=== PATIENT | female | born 1950 | race Caucasian/White ===

== ENCOUNTER 2016-12-17 09:14 | Inpatient (IN) | payer BC, OTHER ==
[2016-11-27 15:31] VITALS: BMI 37.0
--- NOTE | 2016-11-27 16:07 | PAT Medication Instructions ---
Service Date Nov 27, 2016. Current Home Medication List Cholecalciferol (Vitamin D3), 1 TAB PO QAM Cinnamon (Cinnamon), 500 MG PO QAM Clopidogrel (Plavix), 75 MG PO QAM Cyanocobalamin (Vitamin B-12 1000 Mcg), 1,000 MCG PO QAM Desvenlafaxine Succinate (Pristiq), 50 MG PO QAM Ezetimibe (Zetia), 10 MG PO QAM Fish Oil ([place]aster-3), 1,200 MG PO QAM Ibuprofen (Advil), 400 MG PO PRN Losartan Potassium (Cozaar), 50 MG PO QAM Multiple Vitamins W/ Minerals (Hair Skin and Nails Formu), 1 TAB PO QAM Nebivolol Hcl (Bystolic), 5 MG PO QAM Potassium Gluconate (Potassium Gluconate), 595 MG PO QAM Rosuvastatin Calcium (Crestor), 5 MG PO QAM Turmeric (Curcuma Longa) (Turmeric), 500 MG PO QAM [Cla], 1,250 MG PO QAM [Magnesium], 1 TAB PO QAM Medication Instructions For Your Scheduled Surgery - Check with senior air director for instructions: Clopidogrel (Plavix), 75 MG PO QAM - Hold the following medications 2 weeks prior to surgery: Cinnamon (Cinnamon), 500 MG PO QAM Fish Oil ([place]aster-3), 1,200 MG PO QAM Turmeric (Curcuma Longa) (Turmeric), 500 MG PO QAM - Hold the following medications 7-10 days prior to surgery per surgeon's instructions: Ibuprofen (Advil), 400 MG PO PRN - Hold the following medications the morning of surgery: Cholecalciferol (Vitamin D3), 1 TAB PO QAM Cyanocobalamin (Vitamin B-12 1000 Mcg), 1,000 MCG PO QAM Losartan Potassium (Cozaar), 50 MG PO QAM Multiple Vitamins W/ Minerals (Hair Skin and Nails Formu), 1 TAB PO QAM [Cla Protein], 1,250 MG PO QAM [Magnesium], 1 TAB PO QAM Potassium Gluconate (Potassium Gluconate), 595 MG PO QAM - Take the following medications the morning of surgery with a sip of water OTHERWISE NOTHING TO EAT OR DRINK AFTER MIDNIGHT: Ezetimibe (Zetia), 10 MG PO QAM Desvenlafaxine Succinate (Pristiq), 50 MG PO QAM Nebivolol Hcl (Bystolic), 5 MG PO QAM Rosuvastatin Calcium (Crestor), 5 MG PO QAM If you have any questions please call us at [phone] or [phone] or [phone]
[2016-11-27 16:39] LABS: BASO % 0.2 %; BASO ABS # 0.02 K/uL (0-0.2); COMPLETE YES; EOS % 1.4 %; HEMATOCRIT 40.2 % (37-47); IG% 0.2 %; LYMPH % 25.9 %; LYMPH ABS # 2.58 K/uL (1.2-3.4); MEAN CELL VOLUME 95.9 fL (80-100); MEAN CORPUSCULAR HEMOGLOBIN 32.2 pg (25-34); MEAN CORPUSCULAR HGB CONC 33.6 g/dl (32-36); MEAN PLATELET VOLUME 9.4 fL (7.4-10.4); MONO % 5.6 %; NEUT % 66.7 %; PLATELET COUNT 278 K/uL (130-400); RED BLOOD COUNT 4.19 M/uL (4.2-5.4); WHITE BLOOD COUNT 9.95 K/uL (4.8-10.8)
[2016-11-27 17:06] LABS: INR 0.9 (0.9-1.1); PARTIAL THROMBOPLASTIN RATIO 0.9
--- NOTE | 2016-11-27 17:09 | DIAGNOSTIC IMAGING REPORT ---
CHEST 2 VIEWS ROUTINE CLINICAL HISTORY: pat preoperative evaluation COMPARISON STUDY: No previous studies for comparison. FINDINGS: The bones soft tissues and hemidiaphragms are normal. The cardiomediastinal silhouette is normal. The lungs are clear. The pulmonary vasculature is normal. IMPRESSION: Negative chest. Electronically signed by: Carlos Voss M.D. 11/27/2016 5:08 PM Dictated Date/Time: 11/27/2016 5:08 PM
[2016-11-27 17:14] LABS: URINE APPEARANCE CLEAR (CLEAR); URINE BILIRUBIN NEG (NEG); URINE COLOR YELLOW; URINE NITRITE NEG (NEG); URINE PH 7.5 (4.5-7.5); URINE SPECIFIC GRAVITY 1.006 (1.000-1.030); UROBILINOGEN NEG (NEG); ZZUR CULT IF INDIC CLEAN CATCH NO
[2016-11-27 17:17] LABS: BUN/CREATININE RATIO 17.5 (10-20); CALCIUM 9.6 mg/dl (8.5-10.1); CREATININE 0.75 mg/dl (0.60-1.20); POTASSIUM 4.3 mmol/L (3.5-5.1)
[2016-11-27 17:29] LABS: MANUAL MICROSCOPIC REQUIRED? NO; REVIEW REQ? NO
--- NOTE | 2016-12-14 10:53 | HISTORY & PHYSICAL EXAMINATION ---
DATE OF ADMISSION: 12/17/2016 CHIEF COMPLAINT: Right hip pain. HISTORY OF PRESENT ILLNESS: Vicky is a 66-year-old female with a multiple-year history of pain in both of her hips. The patient states her right is worse than left. She rates her pain a 10/10. She has pain with her daily activities. She has limited standing and walking tolerance. Pain is worse with weightbearing. The patient has had injections, anti-inflammatories. She is on Plavix so her NSAID use is limited. She has failed conservative treatment and is scheduled for right hip replacement. PAST MEDICAL HISTORY: Hypertension, hypercholesterolemia, anxiety, history of TIA and prothrombin variant. She denies heart disease, diabetes or DVT. PAST SURGICAL HISTORY: and ORIF left lower extremity. SOCIAL HISTORY: The patient drinks 2 drinks per week. She denies tobacco use. She lives in a single story home. 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 FAMILY HISTORY: Positive for CVA in her father. MEDICATIONS: Crestor 5 mg, 15 mg, Bystolic 5 mg, Plavix 75 mg, Zetia 10 mg, losartan 50 mg, fish oil 1200 mg, turmeric 500 mg, vitamin B12, vitamin D3, magnesium, potassium gluconate, CLA 1250 mg and cinnamon 500 mg. ALLERGIES: COMPAZINE. REVIEW OF SYSTEMS: See HPI. Ten other systems reviewed, all negative. PHYSICAL EXAMINATION: VITAL SIGNS: Height 4 feet 11, weight 132 pounds, BMI is 27. GENERAL: This is a well-developed, well-nourished female who is alert and oriented x3. Mood and affect are appropriate. HEAD, EYES, EARS, NOSE, AND THROAT: Normocephalic, atraumatic. Mucous membranes are moist and intact. NECK: Supple without lymphadenopathy. HEART: Regular rate and rhythm without murmurs, rubs or gallops. LUNGS: Clear to auscultation without wheezes or rhonchi. ABDOMEN: Soft and nontender. Bowel sounds are equal and active. EXTREMITIES: No ecchymosis, redness or warmth. Thigh and calf are soft and nontender. Log roll of the hip reproduces pain in the groin. She is neurovascularly intact with +5/5 strength. X-RAY EXAMINATION: AP and lateral views show severe joint space narrowing with partial femoral head collapse. She has large osteophytes and bony sclerosis. IMPRESSION: Degenerative joint disease, severe, right hip. PLAN: The patient will be admitted for a right total hip arthroplasty. We will plan on Coumadin or Lovenox for DVT prophylaxis due to her prothrombin disorder. Her PCP is Dr. Bonner. She is likely going to do home physical therapy. JUAN LUIS
[2016-12-16 23:10] VITALS: BP 94/54; PULSE 67; TEMP 36.7; O2SAT 97
[2016-12-17] VITALS (8 sets, daily range): BP systolic 85–128; BP diastolic 47–63; PULSE 69–87; TEMP 35.9–37; O2SAT 97–100; Ht 151.1 cm; Wt 59.5 kg
[~2016-12-17] VITALS: Ht 151.1 cm; Wt 59.5 kg
[~2016-12-17 09:14] MED LIST: ACETAMINOPHEN 500 MG TAB PO SCH; BUPIVACAINE 0.5 % 5 MG/1 ML PF 10ML VIAL ONE; CEFAZOLIN 2000 MG/60 ML D5W 60 ML IV SCH; CHOL20007 PO; CINN1CAP2 PO; CLA PO; CLOP1TAB15 PO; CYAN10004 PO; CeleBREX 200 MG CAP PO SCH; DESV50TA2 PO; DEXAMETHASONE 4 MG TAB PO SCH; EZET10TA63 PO; FAMOTIDINE 20 MG TAB PO SCH; GABAPENTIN 300 MG CAP PO SCH; IBUP-1050 PO; LACTATED RINGER'S 1000ML IV SCH; LOSA50TA6 PO; MAGNESIUM PO; METOCLOPRAMIDE HCL 10 MG TAB PO SCH; MULT-1018 PO; NEBI10TA2 PO; OMEG10007 PO; OXYCODONE HCL 10 MG TABCR (OXYCONTIN) PO SCH; POLYMYXIN B SULFATE 100,000 UNITS in NSS 100ML IR SCH; POTA1TAB PO; ROPIVACAINE 5MG/ML 30 ML 150 MG, BUPIVACAINE/EPINEPHR 0.5% MPF 30 ML, KETOROLAC TROMETH... INFIL SCH; ROSU5TAB PO; TURM1CAP4 PO; VANCOMYCIN INJ 400 MG in NSS 100ML IR SCH
[2016-12-17] MEDS ORDERED: LIDOCAINE HCL 2% 2 ML VIAL (20MG/ML) ONE (09:37)
[2016-12-17] MEDS ORDERED: MIDAZOLAM HCL 1 MG/ML 2ML VIAL ONE ×2 (09:37→12:10)
[2016-12-17] MEDS ORDERED: FENTANYL CITRATE INJ 50 MCG/1 ML 2 ML VIAL ONE (09:37)
[2016-12-17] MEDS ORDERED: PROPOFOL IV EMULSION 10 MG/ML 20 ML VIAL IV ONE ×2 (09:37→12:36)
[2016-12-17] MEDS ORDERED: ASPI-390 PO (09:55)
--- NOTE | 2016-12-17 10:37 | History & Physical Bridge Note ---
H&P Re-Evaluation Bridge Note: I have examined the patient, reviewed the History & Physical and in the interval since the performance of the History & Physical I have noted the following changes of clinical significance: No changes noted
[2016-12-17] MEDS ORDERED: BACITRACIN 50000 UNIT VIAL ONE (11:01)
[2016-12-17] MEDS ORDERED: POVIDONE-IODINE OP SOLN 30 ML BTL ONE (11:01)
[2016-12-17] MEDS ORDERED: ORTHO JOINT ANESTHETIC ONE (11:01)
[2016-12-17] MEDS ORDERED: METOPROLOL TARTRATE 1 MG/ML VIAL ONE (11:11)
[2016-12-17] MEDS: TRANEXAMIC ACID INJ 1,000 MG in SODIUM CHLORIDE 0.9% 100ML 100 ML IV SCH ×2 (11:18→16:03)
[2016-12-17] MEDS ORDERED: LACTATED RINGER'S 1000ML 1,000 ML IV PRN (11:19)
[2016-12-17] MEDS ORDERED: FENTANYL CITRATE INJ 50 MCG/1 ML 2 ML VIAL IV PRN (11:30)
[2016-12-17] MEDS ORDERED: ONDANSETRON INJ 2 MG/ML 2 ML VIAL IV PRN ×2 (11:30→13:15)
[2016-12-17] MEDS ORDERED: PHENYLEPHRINE HCL INJ 10 MG/ML VIAL ONE (12:07)
[2016-12-17] MEDS ORDERED: EpHEDrine SULFATE INJ 50 MG/ML AMP ONE (12:07)
[2016-12-17] MEDS ORDERED: METOCLOPRAMIDE HCL INJ 5 MG/ML 2 ML VIAL IV PRN (13:15)
[2016-12-17] MEDS ORDERED: TRAMADOL HCL 50 MG TAB PO PRN (13:15)
[2016-12-17] MEDS ORDERED: ZOLPIDEM TARTRATE 5 MG TAB PO PRN (13:15)
[2016-12-17] MEDS ORDERED: OXYCODONE HCL IR 5 MG TAB (IMMEDIATE RELEASE) PO PRN (13:15)
[2016-12-17] MEDS ORDERED: BISACODYL 10 MG SUPP PR PRN (13:15)
[2016-12-17] MEDS ORDERED: MAGNESIUM HYDROXIDE SUSP 30 ML UDC PO PRN (13:15)
[2016-12-17] MEDS ORDERED: SOD PHOSPHATE/SOD BIPHOSPHATE ENEMA 132 ML BTL PR PRN (13:15)
[2016-12-17] MEDS ORDERED: ALUMINUM/MAGNESIUM/SIMETH (MAALOX MAX) 30 ML UDC PO PRN (13:15)
[2016-12-17] MEDS ORDERED: MoRPHine SULFATE 2 MG/ML CARP IV PRN (13:15)
[2016-12-17] MEDS ORDERED: DiphenhydrAMINE HCL 50 MG/ML VIAL IV PRN (13:15)
--- NOTE | 2016-12-17 13:15 | [facility] Post Operative Brief Note ---
Immediate Operative Summary Operative Date Dec 17, 2016. Pre-Operative Diagnosis Severe degenerative joint disease, right hip Post-Operative Diagnosis same as preoperative diagnosis Procedure(s) Performed Right Total Hip Arthroplasty, Direct Anterior Approach Surgeon Dr. Barrera Naphthalene Operator Surgeon(s) Carrie Mejia PA-C Estimated Blood Loss 75ML Findings severe dz Specimens A. Right femoral head Complication(s) None Disposition Recovery Room / PACU
--- NOTE | 2016-12-17 13:35 | DIAGNOSTIC IMAGING REPORT ---
RIGHT HIP UNILATERAL 1 VIEW CLINICAL HISTORY: RT TOTAL HIP ARTHROPLASTY Right COMPARISON STUDY: None. FINDINGS: Single fluoroscopic spot image. Fluoroscopy time was 9 seconds. There is a partially visualized right total hip arthroplasty. The acetabular cup is not entirely included on this study. The hardware appears intact. No fracture or dislocation. IMPRESSION: Fluoroscopy provided for right total hip arthroplasty. Electronically signed by: Hermes Bush M.D. 12/17/2016 1:34 PM Dictated Date/Time: 12/17/2016 1:21 PM
--- NOTE | 2016-12-17 14:21 | DIAGNOSTIC IMAGING REPORT ---
AP PELVIS, CROSSTABLE LATERAL RIGHT HIP History: Right total hip arthroplasty. Degenerative arthritis. Postop. FINDINGS: The patient is status post a right total hip arthroplasty. The hardware is intact. No fracture or dislocation. Surgical drains are in place. There is severe osteoarthritis with partial collapse of the left femoral head. There may be associated avascular necrosis of the left femoral head. IMPRESSION: Right total hip arthroplasty. No evidence for hardware complication. There is severe osteoarthritis with partial collapse of the femoral head. There may be associated left femoral head avascular necrosis. Electronically signed by: Hermes Bush M.D. 12/17/2016 2:20 PM Dictated Date/Time: 12/17/2016 2:19 PM
--- NOTE | 2016-12-17 14:27 | Discharge Instructions ---
Discharge Instructions Date of Service Dec 17, 2016. Admission Reason for Admission: Right Hip Degenerative Arthritis Discharge Discharge Diagnosis / Problem: sp right total hip Discharge Goals Goal(s): Decrease discomfort, Improve function, Increase independence Activity Recommendations Activity Limitations: per Instructions/Follow-up section . Instructions / Follow-Up Instructions / Follow-Up ACTIVITY RECOMMENDATIONS: SELF CARE INSTRUCTIONS AFTER TOTAL HIP REPLACEMENT : Direct Anterior Approach Until the incision and soft tissues around your hip have healed, there is a possibility that the hip prosthesis could dislocate. A. Hip flexion ( Up & Down out of chair or steps ) may be difficult. This is normal. B. Numbness in front of the thigh is also normal for a few weeks. C. Use hand rails when walking on stairs. D. Wear low heeled shoes with non-slip soles. E. Be sure that your floors are free of things that could trip you - throw rugs , electrical cords, small objects. Avoid wet and waxed floors, especially with crutches and canes. F. Try to walk several times a day with rest periods between. G. Continue with all the exercises taught to you in the hospital. Again, make walking a part of your daily routine. SPECIAL CARE INSTRUCTIONS: VERY IMPORTANT TO READ AND REVIEW A. You may still be at risk for phlebitis and blood clots. 1. Wear surgical stockings (BLANCA hose) for 2 weeks after surgery to improve circulation and reduce swelling. 3. High risk patients may be prescribed a stronger blood thinner if necessary. LOVENOX 30MG DAILY X 2 WEEKS. THEN RESUME PLAVIX AND ASA 81MG DAILY. 4. If you are on Coumadin normally, your family doctor/design printing machine setter should monitor your blood work. Expect a phone call the day of or the day after bloodwork is drawn to adjust your dosage. B. You must take antibiotics before having dental work, bladder, bowel and other surgery. Your doctor will provide you with a permanent card to carry describing precautions. C. Call [facility] if you have a fever, redness or swelling around the incision, cloudy drainage from incision, or sudden increase in pain in your hip, not relieved by your regular pain medication. D. Please call the office at if you have any concerns or questions about your operation or recovery. * YOU MAY SHOWER, NO TUB BATHS UNTIL CLEARED BY YOUR DOCTOR. - Keep an extra close eye on the top portion of your incision. Be sure to keep clean & dry. * WEAR BLANCA HOSE 20 HOURS PER DAY FOR 2 WEEKS. * YOU MAY PROGRESS FROM A WALKER, TO A CANE, TO INDEPENDENT AT YOUR OWN PACE. * MOST PATIENTS WILL HAVE HOME NURSING FOR THERAPY. IF YOU DECIDE TO DO OUTPATIENT PHYSICAL THERAPY, PLEASE SCHEDULE THIS 3 TIMES PER WEEK. * DERMABOND Prineo- This is a mesh tape dressing that is covered with glue. It should remain in place until the incision is properly healed, usually 10-14 days. This dressing is designed to naturally slough off. You may trim the excess mesh tape as it peels off. Incision may be briefly wet in a shower. Dry immediately by blotting with a clean, dry towel. Do not bath or swim until instructed by your doctor. Do not scratch, rub, or pick at the dressing. Do not apply any topical ointments or lotions until dressing is completely removed and/or instructed by your doctor. There may be a small piece of suture material at one end of your incision. Do not pull or trim this. If it is bothersome or catching on clothing, you may cover it with a band-aid. FOLLOW UP VISIT: If appointment is not already scheduled: Please call [facility] to make a follow-up appointment for 2 weeks after your surgery at . Current Hospital Diet Patient's current hospital diet: Regular Diet Discharge Diet Recommended Diet: Regular Diet Procedures Procedures Performed: Right Total Hip Arthroplasty, Direct Anterior Approach Pending Studies Studies pending at discharge: no Medical Emergencies . Who to Call and When: Medical Emergencies: If at any time you feel your situation is an emergency, please call 911 immediately. . Non-Emergent Contact Non-Emergency issues call your: Surgeon . "Provider Documentation" section prepared by Carrie Mejia. VTE Core Measure Inpt VTE Proph given/why not?: Enoxaparin (Lovenox)Candido AGUILERA, SCD's
--- NOTE | 2016-12-17 14:50 | Anesthesiology Progress Note ---
Anesthesia Post Op Note Date & Time Dec 17, 2016 at 14:50 Vital Signs Pain Intensity: 0 Vital Signs Past 12 Hours Date Time Temp Pulse Resp B/P Pulse Ox O2 Delivery O2 Flow Rate FiO2 12/17/16 14:45 79 16 100/61 96 Nasal Cannula 2 12/17/16 14:30 36.7 80 19 100/54 99 Nasal Cannula 2 12/17/16 14:20 79 19 100/49 100 Nasal Cannula 2 12/17/16 14:10 81 16 110/63 100 Nasal Cannula 2 12/17/16 14:00 78 18 105/50 100 Nasal Cannula 2 12/17/16 13:50 81 19 95/63 100 Mask 10 12/17/16 13:40 84 24 103/60 100 Mask 10 12/17/16 13:34 36.2 85 22 113/71 100 Mask 10 12/17/16 09:58 36.8 69 20 128/63 99 Room Air Notes Mental Status: alert / awake / arousable, participated in evaluation Pt Amnestic to Procedure: No Nausea / Vomiting: adequately controlled Pain: adequately controlled Airway Patency, RR, SpO2: stable & adequate BP & HR: stable & adequate Hydration State: stable & adequate Neuraxial Anesthesia: was administered, sensory block is resolving Anesthetic Complications: no major complications apparent Pt doing well. Recall as expected.
--- NOTE | 2016-12-17 14:56 | OPERATIVE REPORT ---
DATE OF OPERATION: 12/17/2016 PREOPERATIVE DIAGNOSIS: Severe degenerative arthritis, right hip. POSTOPERATIVE DIAGNOSIS: Same. PROCEDURE: Right total hip replacement. SURGEON: Mike Barrera MD [employer]UP LINE CORE FEEDER: KIKI Starkey ANESTHESIA: Spinal. BLOOD LOSS: 75 mL. REPLACEMENT FLUIDS: 1100 mL crystalloid. DRAINS: Hemovac x2. CULTURES: None. COMPLICATIONS: None. COMPONENTS USED: [employer] hip system: Acetabulum size 48, femur size 4 high offset, femoral head 0, and neck length 32 mm. NOTE: Carrie Mejia was present and assisted throughout due to the complicated nature of this case. She helped with preparation and set up, first assisted throughout and personally closed the fascial, subcutaneous and skin layers and applied the postoperative dressing. DESCRIPTION OF PROCEDURE: Following satisfactory spinal, the patient was supine. The right leg was placed in the traction device and the left leg in the well leg wylie. The right leg was prepared with ChloraPrep and draped sterilely. Following a surgical time-out, an anterior approach in the interval between the sartorius and tensor muscles was completed, the circumflex femoral vessels were identified and ligated and anterior capsulotomy was performed exposing a severely arthritic femoral neck and head with significant bone loss. The femoral neck and head were trimmed and removed. The acetabular self-retraining retractor was placed. Acetabular preparation was completed including removing large osteophytic bone. Reaming was completed under fluoroscopic guidance and a 48 shell was impacted into an anatomic position and secured with a dome screw. Local anesthetic was placed and after irrigation, the polyethylene liner was placed. The femur was placed in a position of external rotation, extension and adduction. Femoral canal was prepared up to the size 4. Trial reduction with a 0 neck length head showed good soft tissue tension and leg lengths restored using fluoroscopic anatomic landmarks. The fluoroscopy also showed good fit and fill of the proximal canal with the femoral component. The hip was dislocated. The trial component was removed. The final implant was placed. After irrigation, the hip reduced. Fluoroscopy confirmed similar position. A Betadine soak was performed for 5 minutes. The Betadine was then irrigated. The capsule was closed with 1 Vicryl interrupted. A drain was then placed. The fascia was closed with a running suture of #1 Vicryl, the subcutaneous tissues with 2-0 Vicryl and the skin with a running subcuticular stitch of 3-0 V-Loc. Dermabond and a dry dressing were applied. The patient was returned to her bed in stable condition. I attest to the content of the Intraoperative Record and any orders documented therein. Any exceptio ns are noted below.
[2016-12-17] MEDS: D5W AND 1/2NSS + 20MEQ KCL 1,000 ML IV SCH (16:33)
[2016-12-17] MEDS: KETOROLAC TROMETHAMINE 15 MG/ML VIAL IV. SCH ×2 (17:30→23:54)
[2016-12-17] MEDS: CEFAZOLIN IV 1,000 MG in DEXTROSE 5% 50ML 50 ML IV SCH (19:32)
[2016-12-17] MEDS: SENNA 8.6 MG TAB PO SCH (21:00)
[2016-12-17] MEDS: ACETAMINOPHEN 500 MG TAB PO SCH (21:00)
[2016-12-18] MEDS: D5W AND 1/2NSS + 20MEQ KCL 1,000 ML IV SCH ×2 (02:16→12:00)
[2016-12-18 03:10] VITALS: BP 91/63; PULSE 62; TEMP 36.6; O2SAT 97
[2016-12-18] MEDS: CEFAZOLIN IV 1,000 MG in DEXTROSE 5% 50ML 50 ML IV SCH (04:03)
[2016-12-18] MEDS: KETOROLAC TROMETHAMINE 15 MG/ML VIAL IV. SCH ×3 (05:39→17:34)
[2016-12-18] MEDS: ACETAMINOPHEN 500 MG TAB PO SCH ×3 (05:40→20:39)
[2016-12-18 06:30] LABS: BASO % 0.1 %; BASO ABS # 0.01 K/uL (0-0.2); COMPLETE YES; IG% 0.4 %; LYMPH ABS # 1.06 K/uL (1.2-3.4); MEAN CELL VOLUME 91.2 fL (80-100); MEAN CORPUSCULAR HEMOGLOBIN 31.1 pg (25-34); MEAN CORPUSCULAR HGB CONC 34.1 g/dl (32-36); MEAN PLATELET VOLUME 8.8 fL (7.4-10.4); MONO % 5.6 %; NEUT % 86.9 %; PLATELET COUNT 276 K/uL (130-400); RED BLOOD COUNT 3.51 M/uL (4.2-5.4); WHITE BLOOD COUNT 15.13 K/uL (4.8-10.8)
[2016-12-18 07:07] LABS: BUN/CREATININE RATIO 10.6 (10-20); CALCIUM 8.7 mg/dl (8.5-10.1); CREATININE 0.77 mg/dl (0.60-1.20); POTASSIUM 4.1 mmol/L (3.5-5.1)
[2016-12-18 07:23] VITALS: BP 111/59; PULSE 70; TEMP 36.8; O2SAT 100
--- NOTE | 2016-12-18 07:52 | Anesthesiology Progress Note ---
Anesthesia Post Op Note Date & Time Dec 18, 2016 at 07:52 Vital Signs Pain Intensity: 10.0 Vital Signs Past 12 Hours Date Time Temp Pulse Resp B/P Pulse Ox O2 Delivery O2 Flow Rate FiO2 12/18/16 07:23 36.8 70 19 111/59 100 Room Air 12/18/16 03:10 36.6 62 16 91/63 97 Room Air 12/17/16 23:50 Room Air Notes Mental Status: alert / awake / arousable, participated in evaluation Pt Amnestic to Procedure: Yes Nausea / Vomiting: adequately controlled Pain: adequately controlled Airway Patency, RR, SpO2: stable & adequate BP & HR: stable & adequate Hydration State: stable & adequate Neuraxial Anesthesia: sensory block resolved Anesthetic Complications: no major complications apparent
[2016-12-18 09:00] VITALS: BP 104/73; PULSE 73
[2016-12-18] MEDS: CHOLECALCIFEROL 1000 INTER.UNIT TAB PO SCH (09:00)
[2016-12-18] MEDS: LOSARTAN POTASSIUM 50 MG TAB PO SCH (09:00)
[2016-12-18] MEDS ORDERED: NON-FORMULARY MEDICATION (Potassium Gluconate 595 MG) PO SCH (09:00)
[2016-12-18] MEDS: NEBIVOLOL HCL 5 MG TAB PO SCH (09:00)
[2016-12-18] MEDS: PANTOprazole SOD 40 MG TAB PO SCH (09:02)
[2016-12-18] MEDS: CYANOCOBALAMIN 500 MCG TAB (VIT B-12) PO SCH (09:03)
[2016-12-18] MEDS: EZETIMIBE 10MG TAB PO SCH (09:03)
[2016-12-18] MEDS: DESVENLAFAXINE SUCCINATE 50 MG TABCR PO SCH (09:03)
[2016-12-18] MEDS: ROSUVASTATIN CALCIUM 5 MG TAB PO SCH (09:03)
[2016-12-18] MEDS: MULTIVITAMIN TAB PO SCH (09:03)
[2016-12-18] MEDS: ENOXAPARIN 30 MG/0.3 ML SYR SQ SCH (11:30)
[2016-12-18 11:32] VITALS: BP 115/69; PULSE 67; TEMP 37; O2SAT 100
--- NOTE | 2016-12-18 12:13 | Orthopedic Progress Note ---
Orthopedic Progress Note Date of Service Dec 18, 2016. Subjective Post OP Day: 1 Reports: feeling well, Denies: SOB, calf pain, chest pain, light headedness, nausea / vomiting Additional Notes: Pt states that when she began to get OOB to ambulate, she swung her operative leg over the bed and had pain in the posterolateral hip and along the incision, that radiated somewhat down the thigh. Denies shooting pains into the knee or foot. Denies numbness in the RLE. States she had a bout of Sciatica a few months back that was treated by her Chiropractor. No other complaints. States she's able to ambulate without difficulty but when she goes to sit down or stand up, she has the pain. Objective calves soft nontender, N/V intact, hip located, dressing C/D/I, A&O x3, toes mobile Pt stands up from her chair. Points to her posterolateral hip/buttock where she is feeling the pain mostly and also along her incision. No bleeding noted on her incision. Thigh is soft, NT. Good active DF/PF of the right foot. No decrease in sensation. Date Time Temp Pulse Resp B/P Pulse Ox O2 Delivery O2 Flow Rate FiO2 12/18/16 11:32 37.0 67 16 115/69 100 Room Air 12/18/16 09:00 73 104/73 12/18/16 07:30 Room Air 12/18/16 07:23 36.8 70 19 111/59 100 Room Air 12/18/16 03:10 36.6 62 16 91/63 97 Room Air 12/17/16 23:50 Room Air 12/17/16 19:44 37.0 72 16 95/58 97 Room Air 12/17/16 18:14 35.9 78 18 96/61 100 Nasal Cannula 2.0 12/17/16 17:28 95/55 12/17/16 17:14 36.4 83 16 85/47 100 Nasal Cannula 2.0 12/17/16 16:13 36.7 87 18 102/62 100 Nasal Cannula 2.0 12/17/16 15:42 36.6 75 16 96/59 100 Nasal Cannula 2.0 12/17/16 15:15 Nasal Cannula 2.0 12/17/16 15:15 Nasal Cannula 2.0 12/17/16 15:15 36.7 75 16 96/58 100 Nasal Cannula 2.0 12/17/16 15:00 78 15 90/55 100 Nasal Cannula 2 12/17/16 14:45 79 16 100/61 96 Nasal Cannula 2 12/17/16 14:30 36.7 80 19 100/54 99 Nasal Cannula 2 12/17/16 14:20 79 19 100/49 100 Nasal Cannula 2 12/17/16 14:10 81 16 110/63 100 Nasal Cannula 2 12/17/16 14:00 78 18 105/50 100 Nasal Cannula 2 12/17/16 13:50 81 19 95/63 100 Mask 10 12/17/16 13:40 84 24 103/60 100 Mask 10 12/17/16 13:34 36.2 85 22 113/71 100 Mask 10 Laboratory Results 24 Hours: Test 12/18/16 06:22 White Blood Count 15.13 K/uL Red Blood Count 3.51 M/uL Hemoglobin 10.9 g/dL Hematocrit 32.0 % Mean Corpuscular Volume 91.2 fL Mean Corpuscular Hemoglobin 31.1 pg Mean Corpuscular Hemoglobin Concent 34.1 g/dl Platelet Count 276 K/uL Mean Platelet Volume 8.8 fL Neutrophils (%) (Auto) 86.9 % Lymphocytes (%) (Auto) 7.0 % Monocytes (%) (Auto) 5.6 % Eosinophils (%) (Auto) 0.0 % Basophils (%) (Auto) 0.1 % Neutrophils # (Auto) 13.15 K/uL Lymphocytes # (Auto) 1.06 K/uL Monocytes # (Auto) 0.85 K/uL Eosinophils # (Auto) 0.00 K/uL Basophils # (Auto) 0.01 K/uL Assessment & Plan Assessment: POD 1 s/p Right KLEVER : Hypertension, hypercholesterolemia, anxiety, history of TIA and prothrombin variant Plan: Plan for portable xray of the right hip. Until xray done, will hold off on ambulating until xray reviewed. Question of soft tissue injury, Sciatica? Pt hoping to go home today. Will wait for xray review. Inhouse Planning Pain Management: Celebrex, Toradol, Ultram, Morphine, PO Tylenol, Oxy IR DVT Prophylaxis: TEDs, Lovenox Discharge Planning Discharge Planning: home with home health Pain Management: Celebrex, PO Tylenol, Oxy IR DVT Prophylaxis: TEDs, ASA Therapy: Physical Therapy
[2016-12-18] MEDS ORDERED: LVNIS30 SQ (12:19)
[2016-12-18] MEDS ORDERED: CLB200 PO (12:19)
[2016-12-18] MEDS ORDERED: RXC5 PO (12:19)
[2016-12-18] MEDS ORDERED: SNK PO (12:19)
[2016-12-18] MEDS ORDERED: ACET-1138 PO (12:19)
[2016-12-18] MEDS ORDERED: ONDA8TAB6 PO (12:22)
[2016-12-18] MEDS ORDERED: NURSING VERBAL MED ORDER ONE (12:45)
--- NOTE | 2016-12-18 13:06 | DIAGNOSTIC IMAGING REPORT ---
RIGHT PELVIS/UNILATERAL HIP 2-3VIEWS CLINICAL HISTORY: Right hip pain. COMPARISON STUDY: Right hip 12/17/2016. FINDINGS: No acute fracture or dislocation within the pelvis or hips. There is a right total hip arthroplasty. The hardware appears intact. A surgical drain is in place. 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 There is mild femoral head collapse. This remains unchanged IMPRESSION: 1. No acute fracture or dislocation within the right hip. 2. Right total hip arthroplasty. The hardware appears intact. 3. 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 12/18/2016 1:04 PM Dictated Date/Time: 12/18/2016 1:02 PM
[2016-12-18 15:17] VITALS: BP 114/66; PULSE 67; TEMP 37.1; O2SAT 98
[2016-12-18] MEDS: SENNA 8.6 MG TAB PO SCH (20:47)
[2016-12-18 23:30] VITALS: BP 100/55; PULSE 70; TEMP 36.7; O2SAT 96
[2016-12-19] MEDS: KETOROLAC TROMETHAMINE 15 MG/ML VIAL IV. SCH ×2 (00:53→05:23)
[2016-12-19] MEDS: ACETAMINOPHEN 500 MG TAB PO SCH (05:23)
[2016-12-19 07:45] VITALS: BP 130/66; PULSE 68; TEMP 36.8; O2SAT 98
[2016-12-19 07:50] VITALS: O2SAT 98
--- NOTE | 2016-12-19 07:53 | Orthopedic Progress Note ---
Orthopedic Progress Note Date of Service Dec 19, 2016. Subjective Post OP Day: 2 Reports: feeling well, Denies: SOB, calf pain, chest pain, light headedness, nausea / vomiting Additional Notes: Still having some mild pain in the posterolateral hip region with sitting/ standing but tolerating well. Able to ambulate without difficulty. Had a BM last night. Objective calves soft nontender, N/V intact, hip located, incision C/D/I, A&O x3, toes mobile Date Time Temp Pulse Resp B/P Pulse Ox O2 Delivery O2 Flow Rate FiO2 12/19/16 01:00 Room Air 12/18/16 23:30 36.7 70 14 100/55 96 Room Air 12/18/16 15:45 Room Air 12/18/16 15:17 37.1 67 18 114/66 98 Room Air 12/18/16 11:32 37.0 67 16 115/69 100 Room Air 12/18/16 09:00 73 104/73 Assessment & Plan Assessment: POD 2 s/p Right KLEVER Hypertension, hypercholesterolemia, anxiety, history of TIA and prothrombin variant Plan: Continue PT/OT Pt overall feeling well and looking forward to going home today. Plan for dc home today Inhouse Planning Pain Management: Celebrex, Toradol, Ultram, Morphine, PO Tylenol, Oxy IR DVT Prophylaxis: BLANCAs, SCDs, Lovenox Discharge Planning Discharge Planning: home with home health Pain Management: Celebrex, PO Tylenol, Oxy IR DVT Prophylaxis: TEDs, ASA Therapy: Physical Therapy
[2016-12-19] MEDS: CYANOCOBALAMIN 500 MCG TAB (VIT B-12) PO SCH (09:25)
[2016-12-19] MEDS: CHOLECALCIFEROL 1000 INTER.UNIT TAB PO SCH (09:26)
[2016-12-19] MEDS: EZETIMIBE 10MG TAB PO SCH (09:26)
[2016-12-19] MEDS: LOSARTAN POTASSIUM 50 MG TAB PO SCH (09:27)
[2016-12-19] MEDS: MULTIVITAMIN TAB PO SCH (09:27)
[2016-12-19] MEDS: NEBIVOLOL HCL 5 MG TAB PO SCH (09:27)
[2016-12-19] MEDS: ROSUVASTATIN CALCIUM 5 MG TAB PO SCH (09:27)
[2016-12-19] MEDS: PANTOprazole SOD 40 MG TAB PO SCH (09:27)
[2016-12-19] MEDS: DESVENLAFAXINE SUCCINATE 50 MG TABCR PO SCH (09:28)
[2016-12-19 09:42] VITALS: BP 130/66; PULSE 68; TEMP 36.8; O2SAT 98
[2016-12-19] MEDS: ENOXAPARIN 30 MG/0.3 ML SYR SQ SCH (10:04)
[2016-12-19] MEDS ORDERED: CeleBREX 200 MG CAP PO SCH (21:00)
--- NOTE | 2016-12-31 12:06 | DISCHARGE SUMMARY ---
DISCHARGE DIAGNOSIS: Degenerative joint disease, right hip. SECONDARY DIAGNOSIS: None. CONSULTS: None. COMPLICATIONS: None. PROCEDURE: The patient underwent a right total hip arthroplasty, direct anterior approach with Dr. Barrera on 12/17/2016 BRIEF HISTORY: Please see previously dictated history and physical. HOSPITAL SUMMARY: The patient was admitted on the above day for the above procedure. Procedure went without complication. Postop day 1, the patient was having some pain in her operative leg when she swung to get out of bed that radiated down the thigh. She denies pain in the foot or the knee. She denies numbness in the right lower extremity. She did have a history of sciatica and was treated by her chiropractor. Vital signs were stable. She was afebrile. Dressing was clean, dry and intact. She was neurovascularly intact. The patient began physical therapy per protocol. X-ray was taken of the hip. There were no obvious fractures or dislocations at this time. Postop day 2, the patient was feeling well. She denied chest pain or shortness of breath. Vital signs were stable. She was afebrile. Dressing was clean, dry and intact. She was neurovascularly intact. Calves were soft and nontender. The patient continued to progress with physical therapy. She was discharged to home later that day in stable condition. For further review please see the chart. Lab, x-ray data and discharge instructions as per chart.
[2017-01-02] MEDS ORDERED: TRAZ50TA35 PO (14:04)
[2017-01-02] MEDS ORDERED: ACET-1256 PO (14:10)
[2017-01-02] MEDS ORDERED: MAGN400T6 PO (14:10)
[2017-01-02] MEDS ORDERED: CLOP1TAB15 PO (14:11)
== END 2016-12-19 10:35 | disposition home health service (06) | DRG 470 ==
LOC: ENRESERVTM → ENRESERVDT → C.ACU 09:14 → C.3E 10:00
PROVIDERS: ADMIT Orthopaedic Surgery; ATTEND Orthopaedic Surgery
PROC: 0SR90JZ Replacement of Right Hip Joint with Synthetic Substitute, Open Approach (ICD-10-PCS; principal; 2016-12-17 11:30)
DX: M16.11 Unilateral primary osteoarthritis, right hip (principal); I10 Essential (primary) hypertension; E78.00 Pure hypercholesterolemia, unspecified; Z86.73 Personal history of transient ischemic attack (TIA), and cerebral infarction without residual deficits

== ENCOUNTER 2017-01-21 07:18 | Inpatient (IN) | payer BC, OTHER ==
[2017-01-02 14:00] VITALS: BMI 25.0
--- NOTE | 2017-01-17 15:07 | HISTORY & PHYSICAL EXAMINATION ---
DATE OF ADMISSION: 01/21/2017 CHIEF COMPLAINT: Left hip pain. HISTORY OF PRESENT ILLNESS: Ms. Almaguer is a 66-year-old female with a multiple-year history of pain in her left hip. The patient has 10/10 pain. She has had injections, anti-inflammatories. She is on Plavix, so she needs to limit her NSAIDs. She also has a positive prothrombin variant on her coag panel. The patient has failed conservative treatment. She recently underwent right knee replaced and has done well. She is ready to proceed with the left side. PAST MEDICAL HISTORY: Hypertension, hypercholesterolemia and anxiety. She denies heart disease, diabetes or DVT. PAST SURGICAL HISTORY: , ORIF left lower extremity, right total hip arthroplasty, direct anterior. SOCIAL HISTORY: The patient denies tobacco use. She drinks 2 drinks per week. She lives in a single story home. 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 FAMILY HISTORY: Negative for DVT. Positive for CVA in her father. MEDICATIONS: Crestor 5 mg, Pristiq 50 mg, Bystolic 5 mg, Plavix 75 mg, Zetia 10 mg, losartan 50 mg, vitamin, fish oil 1200 mg daily, turmeric 500 mg daily, vitamin B12 1000 mcg, vitamin D3 2,000 international units, magnesium, potassium gluconate 59 mg, cinnamon 500 mg. ALLERGIES: COMPAZINE. REVIEW OF SYSTEMS: See HPI. Ten other systems reviewed, all negative. PHYSICAL EXAMINATION: VITAL SIGNS: Height 4 feet 11, weight 132 pounds, BMI is 27. GENERAL: This is a well-developed, well-nourished female who is alert and oriented x3. Mood and affect are appropriate. HEAD, EYES, EARS, NOSE, AND THROAT: Normocephalic, atraumatic. Mucous membranes are moist and intact. NECK: Supple without lymphadenopathy. HEART: Regular rate and rhythm without murmurs, rubs or gallops. LUNGS: Clear to auscultation without wheezes or rhonchi. ABDOMEN: Soft and nontender. Bowel sounds are equal and active. EXTREMITIES: No ecchymosis, redness or warmth. Log roll of the hip reproduces pain in the groin. She is neurovascularly intact with +5/5 strength. She walks with an antalgic gait. X-RAY EXAMINATION: AP and lateral views show joint space narrowing and osteophyte formation. IMPRESSION: 1. Degenerative joint disease, left hip. 2. Prothrombin disorder. PLAN: The patient will be admitted for a left total hip arthroplasty, direct anterior. We will plan on Lovenox for DVT prophylaxis. The patient does not want OxyContin or oxycodone.
[2017-01-21] VITALS (8 sets, daily range): BP systolic 96–115; BP diastolic 58–67; PULSE 60–77; TEMP 36.3–36.9; O2SAT 97–100; Ht 149.9 cm; Wt 59.1 kg
[~2017-01-21] VITALS: Ht 149.9 cm; Wt 59.1 kg
[~2017-01-21 07:18] MED LIST changes: +ACET-1256 PO; +CLB200 PO; -IBUP-1050 PO; +LACTATED RINGER'S 1000ML 1,000 ML IV SCH; +LACTATED RINGER'S 1000ML 500 ML IV SCH; -LACTATED RINGER'S 1000ML IV SCH; +LVNIS30 SQ; +MAGN400T6 PO; -MAGNESIUM PO; -OXYCODONE HCL 10 MG TABCR (OXYCONTIN) PO SCH; +SNK PO; +TRAMADOL HCL 50 MG TAB PO SCH; +TRAZ50TA35 PO
[2017-01-21] MEDS ORDERED: FENTANYL CITRATE INJ 50 MCG/1 ML 2 ML VIAL ONE (08:16)
[2017-01-21] MEDS ORDERED: MIDAZOLAM HCL 1 MG/ML 2ML VIAL ONE (08:16)
[2017-01-21] MEDS ORDERED: LACTATED RINGER'S 1000ML 1,000 ML IV PRN (08:57)
[2017-01-21] MEDS ORDERED: ONDANSETRON INJ 2 MG/ML 2 ML VIAL IV PRN ×2 (09:00→11:30)
[2017-01-21] MEDS ORDERED: FENTANYL CITRATE INJ 50 MCG/1 ML 2 ML VIAL IV PRN (09:00)
[2017-01-21] MEDS ORDERED: POVIDONE-IODINE OP SOLN 30 ML BTL ONE (09:15)
[2017-01-21] MEDS ORDERED: BACITRACIN 50000 UNIT VIAL ONE (09:15)
[2017-01-21] MEDS ORDERED: ORTHO JOINT ANESTHETIC ONE (09:15)
[2017-01-21] MEDS: TRANEXAMIC ACID INJ 1,000 MG in SODIUM CHLORIDE 0.9% 100ML 100 ML IV SCH ×2 (09:28→11:41)
--- NOTE | 2017-01-21 11:22 | [facility] Post Operative Brief Note ---
Immediate Operative Summary Operative Date Jan 21, 2017. Pre-Operative Diagnosis Left Hip Degenerative Joint Disease Post-Operative Diagnosis Left Hip Degenerative Joint Disease Procedure(s) Performed Left Total Hip Arthroplasty, Direct Anterior Approach Surgeon Dr. Mike Barrera Bridge Tender Surgeon(s) Dave Jacinto PA-C Estimated Blood Loss 50cc Findings SEVERE DZ Specimens A: Left Femoral Head Complication(s) None Disposition Recovery Room / PACU
[2017-01-21] MEDS ORDERED: PROPOFOL IV EMULSION 10 MG/ML 20 ML VIAL IV ONE (11:25)
[2017-01-21] MEDS ORDERED: PHENYLEPHRINE 100MCG/ML 5ML SYR ONE (11:25)
[2017-01-21] MEDS ORDERED: LIDOCAINE HCL 2% 2 ML VIAL (20MG/ML) ONE (11:25)
[2017-01-21] MEDS ORDERED: BISACODYL 10 MG SUPP PR PRN (11:30)
[2017-01-21] MEDS ORDERED: ALUMINUM/MAGNESIUM/SIMETH (MAALOX MAX) 30 ML UDC PO PRN (11:30)
[2017-01-21] MEDS ORDERED: METOCLOPRAMIDE HCL INJ 5 MG/ML 2 ML VIAL IV PRN (11:30)
[2017-01-21] MEDS ORDERED: DiphenhydrAMINE HCL 50 MG/ML VIAL IV PRN (11:30)
[2017-01-21] MEDS ORDERED: SOD PHOSPHATE/SOD BIPHOSPHATE ENEMA 132 ML BTL PR PRN (11:30)
[2017-01-21] MEDS ORDERED: ZOLPIDEM TARTRATE 5 MG TAB PO PRN (11:30)
--- NOTE | 2017-01-21 11:42 | DIAGNOSTIC IMAGING REPORT ---
LEFT HIP UNILATERAL 1 VIEW CLINICAL HISTORY: LT TOTAL ANTERIOR COMPARISON STUDY: None. FINDINGS: Fluoroscopy time was 9 seconds. A single fluoroscopic spot image of the left hip. There is a left total hip arthroplasty. The visualized hardware appears intact. No fracture or dislocation. IMPRESSION: Fluoroscopy provided for left total hip arthroplasty. Electronically signed by: Hermes Bush M.D. 01/21/2017 11:40 AM Dictated Date/Time: 01/21/2017 11:39 AM
--- NOTE | 2017-01-21 12:28 | DIAGNOSTIC IMAGING REPORT ---
AP PELVIS, CROSSTABLE LATERAL LEFT HIP History: Left total hip arthroplasty. Degenerative arthritis. Postop. FINDINGS: The patient is status post a left total hip arthroplasty. The hardware is intact. No fracture or dislocation. Surgical drain is in place. Evidence for prior right total hip arthroplasty. IMPRESSION: Left total hip arthroplasty. No evidence for hardware complication. Electronically signed by: Hermes Bush M.D. 01/21/2017 12:25 PM Dictated Date/Time: 01/21/2017 12:25 PM
--- NOTE | 2017-01-21 12:40 | Anesthesiology Progress Note ---
Anesthesia Post Op Note Date & Time Jan 21, 2017 at 12:39 Vital Signs Pain Intensity: 0 Vital Signs Past 12 Hours Date Time Temp Pulse Resp B/P Pulse Ox O2 Delivery O2 Flow Rate FiO2 01/21/17 12:35 36.2 01/21/17 12:26 122/51 01/21/17 12:23 53 15 01/21/17 12:23 53 15 100 01/21/17 12:21 107/57 01/21/17 12:18 67 19 01/21/17 12:18 19 01/21/17 12:16 118/50 01/21/17 12:13 51 16 100 01/21/17 12:13 52 16 01/21/17 12:12 51 17 125/49 01/21/17 12:12 17 100 01/21/17 12:07 17 01/21/17 12:07 69 17 100 01/21/17 12:06 124/69 01/21/17 12:02 69 22 127/44 99 01/21/17 12:02 72 22 01/21/17 11:57 19 01/21/17 11:57 66 19 01/21/17 11:56 92/64 01/21/17 11:53 117/60 01/21/17 11:52 73 21 99 01/21/17 11:52 21 01/21/17 11:52 36.2 70 16 117/60 99 Mask 10 01/21/17 08:00 36.9 65 18 110/60 99 Room Air Notes Mental Status: alert / awake / arousable, participated in evaluation Pt Amnestic to Procedure: No (recall as expected) Nausea / Vomiting: adequately controlled Pain: adequately controlled Airway Patency, RR, SpO2: stable & adequate BP & HR: stable & adequate Hydration State: stable & adequate Neuraxial Anesthesia: was administered, sensory block is resolving Anesthetic Complications: no major complications apparent Pt doing well.
[2017-01-21] MEDS: D5W AND 1/2NSS + 20MEQ KCL 1,000 ML IV SCH ×2 (14:03→23:57)
[2017-01-21] MEDS: ACETAMINOPHEN 500 MG TAB PO SCH ×2 (14:03→22:17)
--- NOTE | 2017-01-21 15:33 | OPERATIVE REPORT ---
DATE OF OPERATION: 01/21/2017 PREOPERATIVE DIAGNOSIS:. Degenerative arthritis, left hip, severe. POSTOPERATIVE DIAGNOSIS: Same. PROCEDURE: Left total hip replacement. SURGEON: Dr. Mike Barrera. ORGANIZATIONAL DEVELOPMENT CONSULTANT: KIKI Perez. ANESTHESIA: Spinal. BLOOD LOSS: 50 mL. REPLACEMENT FLUIDS: 1500 mL crystalloid. DRAINS: Hemovacs x1. CULTURES: None. COMPLICATIONS: None. COMPONENTS USED: [employer] hip system: Acetabulum size 48, femur size 4 high offset, femoral head was 0, neck length 32 mm. NOTE: KIKI Perez was present and assisted throughout due to the complicated nature of this case. He helped with preparation and set up, first assisted throughout and personally closed the fascial, subcutaneous and skin layers and applied the postoperative dressing. DESCRIPTION OF PROCEDURE: Following satisfactory spinal, the patient was supine. The left leg was placed in the traction device and the right leg in the well leg wylie. The leg was prepared with ChloraPrep and draped sterilely. Following a surgical time-out, an anterior approach was performed in the interval between the sartorius and tensor muscles. The circumflex femoral vessels were identified and ligated. An anterior capsulotomy was performed exposing the arthritic femoral neck and head. The circumflex femoral vessels had been ligated. The femoral neck and head were trimmed and removed. The acetabular self-retaining retractor was placed. Acetabular reaming was completed and the 48 shell was impacted into an anatomic position and secured with a dome screw. Local anesthetic, after irrigation, was placed. Attention was turned to the femur. Femur was placed in a position of external rotation, extension and adduction. Femoral canal was prepared up to a size 4. A trial reduction with a 0 neck length head showed equalization of leg lengths and good fit and fill using anatomic landmarks. The hip was dislocated. The trial component was removed. The final implant was placed. The hip was reduced with fluoroscopy confirming the position. After a Betadine soak. The capsule was closed with 1 Vicryl interrupted. The drain was placed. The muscle fascia was closed with a running suture of 1 Vicryl, the subcutaneous tissues with 2-0 Vicryl and the skin with a running subcuticular stitch of 3-0 V-Loc. Dermabond and a dry dressing were applied. The patient was returned to her bed in stable condition. I attest to the content of the Intraoperative Record and any orders documented therein. Any exceptio ns are noted below.
[2017-01-21] MEDS: CEFAZOLIN IV 1,000 MG in DEXTROSE 5% 50ML 50 ML IV SCH (17:52)
[2017-01-21] MEDS: KETOROLAC TROMETHAMINE 15 MG/ML VIAL IV. SCH ×2 (17:52→23:58)
[2017-01-21] MEDS ORDERED: TRANEXAMIC ACID INJ 1,000 MG in SODIUM CHLORIDE 0.9% 100ML 100 ML IV SCH (18:30)
[2017-01-21] MEDS: TRAMADOL HCL 50 MG TAB PO PRN (19:17)
[2017-01-21] MEDS ORDERED: CeleBREX 200 MG CAP PO SCH (21:00)
[2017-01-21] MEDS ORDERED: SENNA 8.6 MG TAB PO SCH ×2 (21:00)
[2017-01-22] MEDS: CEFAZOLIN IV 1,000 MG in DEXTROSE 5% 50ML 50 ML IV SCH (01:41)
[2017-01-22 03:33] VITALS: BP 104/58; PULSE 64; TEMP 36.7; O2SAT 97
[2017-01-22] MEDS: ACETAMINOPHEN 500 MG TAB PO SCH (05:50)
[2017-01-22] MEDS: KETOROLAC TROMETHAMINE 15 MG/ML VIAL IV. SCH ×2 (05:51→11:33)
[2017-01-22] MEDS: TRAMADOL HCL 50 MG TAB PO PRN ×2 (05:51→11:25)
[2017-01-22 06:15] LABS: COMPLETE YES; HEMATOCRIT 30.7 % (37-47); IG% 0.2 %; LYMPH % 7.2 %; LYMPH ABS # 1.13 K/uL (1.2-3.4); MEAN CELL VOLUME 93.6 fL (80-100); MEAN CORPUSCULAR HEMOGLOBIN 31.4 pg (25-34); MEAN CORPUSCULAR HGB CONC 33.6 g/dl (32-36); MEAN PLATELET VOLUME 9.7 fL (7.4-10.4); MONO % 5.9 %; NEUT % 86.7 %; PLATELET COUNT 276 K/uL (130-400); RED BLOOD COUNT 3.28 M/uL (4.2-5.4); WHITE BLOOD COUNT 15.61 K/uL (4.8-10.8)
[2017-01-22 06:49] LABS: BUN/CREATININE RATIO 7.6 (10-20); CALCIUM 8.8 mg/dl (8.5-10.1); POTASSIUM 4.2 mmol/L (3.5-5.1)
[2017-01-22 06:58] VITALS: BP 110/62; PULSE 72; TEMP 36.5; O2SAT 95
--- NOTE | 2017-01-22 07:13 | Discharge Instructions ---
Discharge Instructions Date of Service Jan 22, 2017. Admission Reason for Admission: Left Hip Degenerative Arthritis Discharge Discharge Diagnosis / Problem: Left Hip Djd Discharge Goals Goal(s): Decrease discomfort, Improve function Activity Recommendations Activity Limitations: per Instructions/Follow-up section Weightbearing Status: Left weightbearing (as tolerated) . Instructions / Follow-Up Instructions / Follow-Up ACTIVITY RECOMMENDATIONS: SELF CARE INSTRUCTIONS AFTER TOTAL HIP REPLACEMENT : Direct Anterior Approach Until the incision and soft tissues around your hip have healed, there is a possibility that the hip prosthesis could dislocate. A. Hip flexion ( Up & Down out of chair or steps ) may be difficult. This is normal. B. Numbness in front of the thigh is also normal for a few weeks. C. Use hand rails when walking on stairs. D. Wear low heeled shoes with non-slip soles. E. Be sure that your floors are free of things that could trip you - throw rugs , electrical cords, small objects. Avoid wet and waxed floors, especially with crutches and canes. F. Try to walk several times a day with rest periods between. G. Continue with all the exercises taught to you in the hospital. Again, make walking a part of your daily routine. SPECIAL CARE INSTRUCTIONS: VERY IMPORTANT TO READ AND REVIEW A. You may still be at risk for phlebitis and blood clots. 1. Wear surgical stockings (BLANCA hose) for 2 weeks after surgery to improve circulation and reduce swelling. 2. Take Lovenox 30mg injection daily for 2 weeks, then stop the Lovenox and begin taking Aspirin 81mg twice daily for 2 weeks or as directed by your doctor. This is your blood thinner. 3. High risk patients may be prescribed a stronger blood thinner if necessary. 4. If you are on Coumadin normally, your family doctor/console operator should monitor your blood work. Expect a phone call the day of or the day after bloodwork is drawn to adjust your dosage. B. You must take antibiotics before having dental work, bladder, bowel and other surgery. Your doctor will provide you with a permanent card to carry describing precautions. C. Call [facility] if you have a fever, redness or swelling around the incision, cloudy drainage from incision, or sudden increase in pain in your hip, not relieved by your regular pain medication. D. Please call the office at if you have any concerns or questions about your operation or recovery. * YOU MAY SHOWER, NO TUB BATHS UNTIL CLEARED BY YOUR DOCTOR. - Keep an extra close eye on the top portion of your incision. Be sure to keep clean & dry. * WEAR BLANCA HOSE 20 HOURS PER DAY FOR 2 WEEKS. * YOU MAY PROGRESS FROM A WALKER, TO A CANE, TO INDEPENDENT AT YOUR OWN PACE. * MOST PATIENTS WILL HAVE HOME NURSING FOR THERAPY. IF YOU DECIDE TO DO OUTPATIENT PHYSICAL THERAPY, PLEASE SCHEDULE THIS 3 TIMES PER WEEK. * DERMABOND Prineo- This is a mesh tape dressing that is covered with glue. It should remain in place until the incision is properly healed, usually 10-14 days. This dressing is designed to naturally slough off. You may trim the excess mesh tape as it peels off. Incision may be briefly wet in a shower. Dry immediately by blotting with a clean, dry towel. Do not bath or swim until instructed by your doctor. Do not scratch, rub, or pick at the dressing. Do not apply any topical ointments or lotions until dressing is completely removed and/or instructed by your doctor. There may be a small piece of suture material at one end of your incision. Do not pull or trim this. If it is bothersome or catching on clothing, you may cover it with a band-aid. FOLLOW UP VISIT: If appointment is not already scheduled: Please call [facility] to make a follow-up appointment for 2 weeks after your surgery at . Current Hospital Diet Patient's current hospital diet: Regular Diet Discharge Diet Recommended Diet: Regular Diet Procedures Procedures Performed: Left Total Hip Arthroplasty, Direct Anterior Approach Pending Studies Studies pending at discharge: no Medical Emergencies . Who to Call and When: Medical Emergencies: If at any time you feel your situation is an emergency, please call 911 immediately. . Non-Emergent Contact Non-Emergency issues call your: Surgeon Call Non-Emergent contact if: temperature is above 101.5, your pain is not controlled, your pain is worsening, wound has increased drainage, wound has increased redness . "Provider Documentation" section prepared by Dave Jacinto. VTE Core Measure Inpt VTE Proph given/why not?: Enoxaparin (Lovenox)ALE, T.E.Jj Preciado, SCD's [place] Drug Monitoring Program Search Results: patient reviewed within database, no issues identified
--- NOTE | 2017-01-22 07:47 | Orthopedic Progress Note ---
Orthopedic Progress Note Date of Service Jan 22, 2017. Subjective Post OP Day: 1 Reports: feeling well, Denies: SOB, calf pain, chest pain, light headedness, nausea / vomiting Objective calves soft nontender, N/V intact, dressing C/D/I, A&O x3, toes mobile, hemovac drainage (150/50 CC PER SHIFT) Date Time Temp Pulse Resp B/P Pulse Ox O2 Delivery O2 Flow Rate FiO2 01/22/17 06:58 36.5 72 17 110/62 95 Room Air 01/22/17 03:33 36.7 64 16 104/58 97 Room Air 01/22/17 00:00 Room Air 01/21/17 22:55 36.5 60 17 105/58 98 Room Air 01/21/17 20:35 36.7 65 18 105/62 97 Room Air 01/21/17 16:00 36.5 69 18 100/59 98 Room Air 01/21/17 15:20 Room Air 01/21/17 15:00 36.4 71 18 96/60 100 Room Air 01/21/17 14:06 36.7 69 19 100/66 98 Nasal Cannula 1.0 01/21/17 13:30 36.3 70 14 110/66 100 Nasal Cannula 2.0 01/21/17 13:05 Nasal Cannula 01/21/17 13:05 36.4 77 16 115/67 100 Nasal Cannula 2.0 01/21/17 12:47 57 16 01/21/17 12:47 57 16 100 01/21/17 12:45 99/55 01/21/17 12:42 44 16 01/21/17 12:42 55 16 01/21/17 12:41 104/54 01/21/17 12:37 60 16 01/21/17 12:37 60 16 100 01/21/17 12:35 36.2 01/21/17 12:35 116/59 01/21/17 12:32 52 15 01/21/17 12:32 49 15 100 01/21/17 12:31 108/56 01/21/17 12:27 53 16 100 01/21/17 12:27 52 16 01/21/17 12:26 122/51 01/21/17 12:23 53 15 01/21/17 12:23 53 15 100 01/21/17 12:21 107/57 01/21/17 12:18 67 19 01/21/17 12:18 19 01/21/17 12:16 118/50 01/21/17 12:13 51 16 100 01/21/17 12:13 52 16 01/21/17 12:12 51 17 125/49 01/21/17 12:12 17 100 01/21/17 12:07 17 01/21/17 12:07 69 17 100 01/21/17 12:06 124/69 01/21/17 12:02 69 22 127/44 99 01/21/17 12:02 72 22 01/21/17 11:57 19 01/21/17 11:57 66 19 01/21/17 11:56 92/64 01/21/17 11:53 117/60 01/21/17 11:52 73 21 99 01/21/17 11:52 21 01/21/17 11:52 36.2 70 16 117/60 99 Mask 10 01/21/17 08:00 36.9 65 18 110/60 99 Room Air Laboratory Results 24 Hours: Test 01/22/17 05:15 White Blood Count 15.61 K/uL Red Blood Count 3.28 M/uL Hemoglobin 10.3 g/dL Hematocrit 30.7 % Mean Corpuscular Volume 93.6 fL Mean Corpuscular Hemoglobin 31.4 pg Mean Corpuscular Hemoglobin Concent 33.6 g/dl Platelet Count 276 K/uL Mean Platelet Volume 9.7 fL Neutrophils (%) (Auto) 86.7 % Lymphocytes (%) (Auto) 7.2 % Monocytes (%) (Auto) 5.9 % Eosinophils (%) (Auto) 0.0 % Basophils (%) (Auto) 0.0 % Neutrophils # (Auto) 13.53 K/uL Lymphocytes # (Auto) 1.13 K/uL Monocytes # (Auto) 0.92 K/uL Eosinophils # (Auto) 0.00 K/uL Basophils # (Auto) 0.00 K/uL Assessment & Plan Assessment: POD#1 SP LEFT KLEVER, DIRECT ANTERIOR Inhouse Planning Pain Management: Celebrex, Ultram, PO Tylenol DVT Prophylaxis: TEDs, SCDs, Lovenox Discharge Planning Discharge Planning: home with home health ([facility] WITH HOME PT.)
[2017-01-22] MEDS ORDERED: ACET-1256 PO (07:55)
[2017-01-22] MEDS ORDERED: ONDA8TAB6 PO (07:55)
[2017-01-22] MEDS ORDERED: ULT50X PO (07:55)
[2017-01-22] MEDS ORDERED: CLOP1TAB15 PO (07:55)
[2017-01-22] MEDS ORDERED: LVNIS30 SQ (07:55)
[2017-01-22] MEDS ORDERED: CLB200 PO (07:55)
--- NOTE | 2017-01-22 08:06 | Anesthesiology Progress Note ---
Anesthesia Post Op Note Date & Time Jan 22, 2017 at 08:05 Vital Signs Pain Intensity: 7.0 Vital Signs Past 12 Hours Date Time Temp Pulse Resp B/P Pulse Ox O2 Delivery O2 Flow Rate FiO2 01/22/17 06:58 36.5 72 17 110/62 95 Room Air 01/22/17 03:33 36.7 64 16 104/58 97 Room Air 01/22/17 00:00 Room Air 01/21/17 22:55 36.5 60 17 105/58 98 Room Air 01/21/17 20:35 36.7 65 18 105/62 97 Room Air Notes Mental Status: alert / awake / arousable, participated in evaluation Pt Amnestic to Procedure: Yes Nausea / Vomiting: adequately controlled Pain: improving with treatment Airway Patency, RR, SpO2: stable & adequate BP & HR: stable & adequate Hydration State: stable & adequate Neuraxial Anesthesia: sensory block resolved Anesthetic Complications: no major complications apparent
[2017-01-22] MEDS ORDERED: NEBIVOLOL HCL 5 MG TAB PO SCH (09:00)
[2017-01-22] MEDS ORDERED: PANTOprazole SOD 40 MG TAB PO SCH (09:00)
[2017-01-22] MEDS ORDERED: MAGNESIUM OXIDE 400 MG TAB PO SCH (09:00)
[2017-01-22] MEDS ORDERED: ROSUVASTATIN CALCIUM 10 MG TAB PO SCH (09:00)
[2017-01-22] MEDS ORDERED: TURMERIC 500 MG PO SCH (09:00)
[2017-01-22] MEDS ORDERED: CYANOCOBALAMIN 500 MCG TAB (VIT B-12) PO SCH (09:00)
[2017-01-22] MEDS ORDERED: ENOXAPARIN 30 MG/0.3 ML SYR SQ SCH (09:00)
[2017-01-22] MEDS ORDERED: MULTIVITAMIN TAB PO SCH (09:00)
[2017-01-22] MEDS ORDERED: CHOLECALCIFEROL 1000 INTER.UNIT TAB PO SCH (09:00)
[2017-01-22] MEDS ORDERED: EZETIMIBE 10MG TAB PO SCH (09:00)
[2017-01-22] MEDS ORDERED: LOSARTAN POTASSIUM 50 MG TAB PO SCH (09:00)
[2017-01-22 09:43] VITALS: BP 110/62; PULSE 72; TEMP 36.5; O2SAT 95
[2017-01-22] MEDS: D5W AND 1/2NSS + 20MEQ KCL 1,000 ML IV SCH (10:00)
--- NOTE | 2017-01-23 13:01 | DISCHARGE SUMMARY ---
DISCHARGE DIAGNOSIS: Degenerative joint disease, left hip. SECONDARY DIAGNOSES: Hypertension, hypercholesterolemia, anxiety. CONSULTS: None. COMPLICATIONS: None. PROCEDURES: Left hip total arthroplasty, direct anterior by Dr. Ricardo Barrera on 01/21/2017. BRIEF HISTORY: As dictated in history and physical. HOSPITAL SUMMARY: The patient was admitted on the above date and had the above-noted surgery performed which he tolerated well. On the first postoperative day, patient was feeling well and had no complaints. Calves were soft, nontender, neurovascularly intact. Dressings clean, dry and intact. Toes were mobile. Vital signs were stable and she was afebrile. Hemoglobin was 10.3 and she was started on physical therapy protocol and continued on DVT prophylaxis and pain management. She was progressing with her physical therapy and remaining stable and it was felt she could be discharged to home on 01/22/2017. For further review, please see chart. LAB AND X-RAY DATA: As per chart. DISCHARGE INSTRUCTIONS: The patient was discharged to home in satisfactory condition on 01/22/2017. DIET: Regular. ACTIVITY: Weightbearing as tolerated left lower extremity. Follow KLEVER direct anterior instruction sheets and special care instructions as noted. Follow up with Dr. Barrera in 2 weeks. The patient to call for appointment if one has not been made for you. DISCHARGE MEDICATIONS: Zofran 8 mg p.o. q. 8 hours p.r.n., tramadol 50-100 mg p.o. q. 4 hours p.r.n. Resume home meds as listed in discharge instructions. Change prescriptions acetaminophen 1000 mg p.o. q. 8 hours p.r.n. pain and clopidogrel 75 mg p.o. q.a.m. for 30 days.
== END 2017-01-22 12:20 | disposition home health service (06) | DRG 470 ==
LOC: ENRESERVTM → ENRESERVDT → C.ACU 07:18 → C.3E 08:00
PROVIDERS: ADMIT Orthopaedic Surgery; ATTEND Orthopaedic Surgery
PROC: 0SRB04Z Replacement of Left Hip Joint with Ceramic on Polyethylene Synthetic Substitute, Open Approach (ICD-10-PCS; principal; 2017-01-21 09:30)
DX: M16.12 Unilateral primary osteoarthritis, left hip (principal); D68.8 Other specified coagulation defects; I10 Essential (primary) hypertension; E78.00 Pure hypercholesterolemia, unspecified; F41.9 Anxiety disorder, unspecified; Z96.641 Presence of right artificial hip joint; R01.1 Cardiac murmur, unspecified; F32.9 Major depressive disorder, single episode, unspecified; Z79.02 Long term (current) use of antithrombotics/antiplatelets; Z86.73 Personal history of transient ischemic attack (TIA), and cerebral infarction without residual deficits; Z86.69 Personal history of other diseases of the nervous system and sense organs; Z79.899 Other long term (current) drug therapy; Z86.19 Personal history of other infectious and parasitic diseases